=== PATIENT | female | born 1960 | race Caucasian/White ===

== ENCOUNTER 2024-02-12 08:38 | Outpatient (OUT) | payer MEDICARE, OTHER, SELFPAY ==
--- NOTE | 2024-02-12 08:53 | MM_ITS ---
Patient Name: ALEENA COLLINS MR#: [id number] : 1960 Exam Date: 02/12/2024 Ordering Doctor: DR Sim Silverio . RADIOLOGY REPORT PROCEDURE: MM TOMOSYNTHESIS SCREENING BI COMPARISON: MG MAMM SCREEN 3D PATSY CAD, 12/27/2020. MG MAMM SCREEN 3D PATSY CAD, 01/14/2023. INDICATIONS: Screening Calculator Name NCI Breast Cancer Risk Assessment Tool 5 Year Breast Cancer Risk 2.20% Lifetime Breast Cancer Risk 8.30% Personal Breast Cancer No Personal Ovarian Cancer No Treatments None Family Cancers Aunt-paternal with breast cancer at age ~40; Mother with melanoma cancer at age 60; Father with hodgkins cancer at age ~70. LOCATION: [facility] BREAST COMPOSITION: There are scattered areas of fibroglandular density. FINDINGS: DIAGNOSTIC CATEGORY 1--NEGATIVE. NO CHANGE FROM COMPARISON ASSESSMENT. Scattered benign-appearing calcifications are present. Scattered benign-appearing lymph nodes are present. RIGHT BREAST: No significant suspicious finding. Stable micro clip marker upper outer quadrant, mid breast LEFT BREAST: No significant suspicious finding. RECOMMENDATIONS: ROUTINE MAMMOGRAM AND CLINICAL EVALUATION IN 12 MONTHS. PLEASE NOTE: A NORMAL MAMMOGRAM DOES NOT EXCLUDE THE POSSIBILITY OF BREAST CANCER. A CLINICALLY SUSPICIOUS PALPABLE LUMP SHOULD BE BIOPSIED. Dictated by: Abdiaziz Collins MD on 02/12/2024 at 10:45 Approved by: Abdiaziz Collins MD on 02/12/2024 at 10:46
--- NOTE | 2024-02-12 08:54 | XR_ITS ---
[address] [address] Patient Name: ALEENA COLLINS MRN: [id number] date: 1960 Sex: F Assigned Patient Location: LAB Current Patient Location: Accession/Order Number: [id number] Exam Date: 02/12/2024 09:10 Report Date: 02/15/2024 07:31 At the request of: RAMÓN GREENE Procedure: XR DEXA axial skeleton EXAMINATION: XR DEXA axial skeleton, 02/12/2024 9:10 AM EDT HISTORY: Age Related Osteoporosis M81.0 COMPARISON: None. TECHNIQUE: Dual-energy X-ray absorptiometry (DEXA) bone density study performed for the axial skeleton. HISTORY: Age Related Osteoporosis M81.0 FINDINGS: Bone mineral density AP spine L1-L4 measures 1.062 g/sq cm. T score -1.0. WHO classification: Normal. Lowest bone mineral density left femoral neck measuring 0.718 g/sq cm. T score -2.3. WHO classification: Osteopenia XR/XR DEXA axial skeleton IMPRESSION: Osteopenia. Moderate fracture risk Pharmacologic treatment recommendations * No uniform recommendation applies to all patients. Management plans must be individualized. * Consider initiating pharmacologic treatment in postmenopausal women and men >= 50 years of age who have the following: Primary fracture prevention: * T-score <= - 2.5 at the femoral neck, total hip, lumbar spine, 33% radius (some uncertainty with existing data) by DXA. * Low bone mass (osteopenia: T-score between - 1.0 and - 2.5) at the femoral neck or total hip by DXA with a 10-year hip fracture risk >= 3% or a 10-year major osteoporosis-related fracture risk >= 20% (i.e., clinical vertebral, hip, forearm, or proximal humerus) based on the US-adapted FRAXregistered model. Secondary fracture prevention: * Fracture of the hip or vertebra regardless of BMD [4, 5]. * Fracture of proximal humerus, pelvis, or distal forearm in persons with low bone mass (osteopenia: T-score between - 1.0 and - 2.5). The decision to treat should be individualized in persons with a fracture of the proximal humerus, pelvis, or distal forearm who do not have osteopenia or low BMD [12, 13]. Maria Teresa MS, Arminda SL, Kenney KL, Cheyenne EM, Santosh KG, AJ, Sage ES. The clinician's guide to prevention and treatment of osteoporosis. Osteoporos Int. 2021;33(10):4087-2375. doi: 10.1007/q41111-065-19066-x. Epub 2021Dec 19. Erratum in: Osteoporos Int. 2021Mar 20;: PMID: 64252652; PMCID: [id number]. Electronically authenticated by: MARTHA GOETZ Date: 02/15/2024 07:31
[2024-02-12 08:58] LABS: Basophils Percent Auto 0.9 % (0.2-2.0); Eosinophils Absolute Auto 0.1 10^3/uL (0.0-0.7); Eosinophils Percent Auto 1.8 % (0.9-7.0); Hematocrit 43.8 % (36.0-48.0); Hemoglobin 14.4 g/dL (12.0-16.0); Immature Granulocytes Abs Auto 0.01 10^3/uL (0.00-0.03); Immature Granulocytes Pct Auto 0.2 % (0.0-0.5); Lymphocytes Absolute Auto 1.1 10^3/uL (1.2-3.8); Mean Corpuscular HGB Conc 32.9 g/dL (29.9-35.2); Mean Corpuscular Volume 94.2 fL (81.0-99.0); Mean Platelet Volume 9.9 fL (9.5-13.5); Monocytes Absolute Auto 0.4 10^3/uL (0.3-0.8); Monocytes Percent Auto 7.8 % (1.7-12.0); Neutrophils Absolute Auto 2.9 10^3/uL (1.4-6.5); Neutrophils Percent Auto 65.3 % (43.0-75.0); Platelet Count 221 10^3/uL (150-450); Red Blood Count 4.65 10^6/uL (4.20-5.40); Red Cell Distribution Width 13.2 % (11.0-15.0); White Blood Count 4.5 10^3/uL (4.0-11.0)
[2024-02-12 09:43] LABS: Estimated Average Glucose 117 mg/dL; Glycohemoglobin A1C 5.7 % (4.5-6.2)
[2024-02-12 10:39] LABS: Alanine Aminotransferase 22 U/L (14-59); Albumin Globulin Ratio 1.2; Albumin Level 3.9 g/dL (3.4-5.0); Alkaline Phosphatase 90 U/L (46-116); Anion Gap 9.1; Aspartate Amino Transferase 17 U/L (15-37); BUN Creatinine Ratio 26.7; Bilirubin Total 0.5 mg/dL (0.2-1.0); Calcium 9.3 mg/dL (8.5-10.1); Chloride 104 mmol/L (98-107); Chol HDL Ratio 2.2; Cholesterol 215 mg/dL (<=200); Estimated GFR (African America >60 (>=60); Estimated GFR (Non-African Ame >60 (>=60); Globulin 3.3 g/dL; Glucose 88 mg/dL (74-106); HDL Cholesterol 98 mg/dL (40-60); Potassium 4.1 mmol/L (3.5-5.1); Sodium 141 mmol/L (136-145); Thyroid Stimulating Hormone 2.313 uIU/mL (0.358-3.740); Total Protein 7.2 g/dL (6.4-8.2); Triglycerides 157 mg/dL (<=150); VLDL CHOLESTEROL 31.4 mg/dL
[2024-02-12 10:45] LABS: Free T4 0.96 ng/dL (0.76-1.46)
== END 2024-02-12 08:39 | disposition home or self-care (01) ==
LOC: LAB 08:38
PROVIDERS: PCP Family Medicine; Visit Provider Family Medicine
DX: R53.83 Other fatigue (principal); E78.00 Pure hypercholesterolemia, unspecified; R73.09 Other abnormal glucose; Z80.3 Family history of malignant neoplasm of breast; Z80.8 Family history of malignant neoplasm of other organs or systems; Z12.31 Encounter for screening mammogram for malignant neoplasm of breast; M85.80 Other specified disorders of bone density and structure, unspecified site; M81.0 Age-related osteoporosis without current pathological fracture
CPT/HCPCS: 36415; 77063; 77067; 77080; 80053; 80061; 83036; 84439; 84443; 85025

== ENCOUNTER 2025-04-18 08:32 | Outpatient (OUT) | payer MEDICARE, OTHER, SELFPAY ==
--- OUTSIDE RECORDS SUMMARY | 2024-02-16 05:25 | XMS_ITS ---
Author Organization [facility] in [place] Address [address] [place] [address] Care Team Providers Care Shot Man Name Role Phone Luigi Greene Primary Care Provider [phone] RAMÓN GREENE Unavailable [phone] REASON FOR VISIT Fosamax refused Encounters Encounter Location Date Provider [facility] [address] [place] [address] 02/16/2024 RAMÓN GREENE Plan Of Treatment No Information Progress Notes * Josseline COLLINS KDOB:1960 (63 yo F)Acc No.[id number]:02/16/2024 Patient: Bertha CLAUDIOJosseline :1960 A ge:63 Y S ex:Female Address:[address] [place], [address] * true * Date: Generated for Printi ng/Faxing/eTransmitting on: 0 04/18/2025 08:35 AM EDT
--- OUTSIDE RECORDS SUMMARY | 2024-11-10 07:52 | XMS_ITS ---
Author Organization The [facility] in [place] Address [address] [place] [address] Care Team Providers Care Decator Operator Name Role Phone Luigi Silverio Primary Care Provider [phone] REASON FOR VISIT Z-Pack Medications Medication SIG (Take, Route, Fr equency, Duration) Notes Start Date End Date Status Azithromycin 250 MG take 2 tablets on da y one Orally then one a day for the next 4 days for 5 days 11/10/2024 Active Encounters Encounter Location Date Provider Diagnosis [facility] [address] [place] [address] 11/10/2024 Luigi Silverio Plan Of Treatment Medication Medication Name Sig Start Date Stop Date Notes Azithromycin 250 MG take 2 tablets on da y one Orally then one a day for the next 4 days for 5 days 11/10/2024 Progress Notes * Josseline COLLINS KDOB:1960 (64 yo F)Acc No.[id number]:11/10/2024 Patient: Bertha Josseline CLAUDIO :1960 A ge:64 Y S ex:Female Address:[address] [place], [address] * Refills Start Azithromycin Tablet, 250 MG, Orally, 6 Each, take 2 tablets on day one, then one a day for the next 4 days, 5 days, Refills=0 * true * Date: Generated for Printi ng/Faxing/eTransmitting on: 0 04/18/2025 08:35 AM EDT
--- OUTSIDE RECORDS SUMMARY | 2025-04-18 08:35 | XMS_ITS | Patient Health Record ---
Author Organization [facility] in [place] Address [address] [place] [address] Care Team Providers Care Religious Education Teacher Name Role Phone Luigi Silverio Primary Care Provider [phone] Allergies Allergen (clinical drug ingredient) Drug/Non Drug Allergy documented on EMR Reaction Allergy Type Onset Date Status Substance with sulfonamide structure and antibacterial mechanism of action (substance) Sulfa Antibiotics hives Drug Allergy Active Reason For Referral No Information Medications Medication SIG (Take, Route, Frequency, Duration) Notes Start Date End Date Status Multi Vitamin - 1 tablet Orally Once a day Active Calcium 600 MG 1 tablet with meals Orally Twice a day 02/15/2024 Active Cholecalciferol 50 MCG (2000 UT) 1 capsule Orally Once a day 02/15/2024 Active Social History Tobacco Use: Social History Observation Description Date Details (start date - stop date) Never Smoker NA - NA Tobacco Use/Smoking Question Answer Notes Patient is a nonsmoker Alcohol Screen (Audit-C) Question Answer Notes Did you have a drink contain ing alcohol in the past year? Yes How often did you have 6 or more drinks on one occasion in the past year? Never (0 point) How many drinks did you have on a typical day when you were drinking in the past year? 1 or 2 drinks (0 point) How often did you have a dri nk containing alcohol in the past year? Weekly (3 points) Points 3 Interpretation Positive AUDIT-C (Standard) Question Answer Notes Did you have a drink contain ing alcohol in the past year? Yes How often did you have six o r more drinks on one occasion in the past year? Never (0 point) How many drinks did you have on a typical day when you were drinking in the past year? 1 or 2 drinks (0 point) How often did you have a dri nk containing alcohol in the past year? 2 to 4 times a month (2 points) Points 2 Interpretation Negative Problems Problem Type SNOMED Code ICD Code Onset Dates Problem Status W/U Status Risk Notes Problem 06420083 Age-related osteoporosis without current pathological fracture (M81.0) Active confirmed Problem Exposure to communicable disease (816464208) Contact with and (suspected) exposure to other viral communicable diseases (Z20.828) Active confirmed Problem Gastroesophageal reflux disease (606467752) GERD (gastroesophagea l reflux disease) (K21.9) Active confirmed Problem Osteopenia (055820054) Osteopenia (M85.80) Active confirmed Problem Lipoma (45697744) Lipoma (D17.9) Active confirm ed Problem Acute sinusitis (48164676) Acute sinusitis (J01.90) Active confirmed Problem Acute bronchitis (49229418) Acute bronchitis (J20.9) Active confirmed Problem Well adult (881529734) Well adult (Z00.00) Active confirmed Problem Paronychia of toe (962127477) Paronychia of toe (L03.039) Active confirmed Problem Candidiasis (05891939) Yeast infection (B37.9) Active confirmed Problem Routine gynecologic examination (499704075) Encounter for annual routine gynecological examination (Z01.419) Active confirmed Problem 06742729 Pure hypercholesterol emia, unspecified (E78.00) Active confirmed Vital Signs Blood pressure diastolic 80 mm Hg 04/03/2025 Height 55.5 in 04/03/2025 Blood pressure systolic 134 mm Hg 04/03/2025 Weight 138 lbs 04/03/2025 BMI 31.5 kg/m2 04/03/2025 Procedures Procedure Date Ordered Date Performed Result Body Sit e Cerumen Removal - performed 04/03/2025 N/A Encounters Encounter Location Date Provider Diagnosis [facility] [address] [place] [address] 04/03/2025 Luigi Silverio GERD (gastroesophage al reflux disease) K21.9 ; Osteopenia M85.80 and Bilateral impacted cerumen H61.23 [facility] [address] [place] [address] 11/10/2024 Luigi Silverio Assessments Encounter Date Diagnosis (ICD Code) Assessment Notes Treatment Notes Treatment Clinical Notes Section Notes 04/03/2025 GERD (gastroesophage al reflux disease) (ICD-10 - K21.9) 04/03/2025 Osteopenia (ICD-10 - M85.80) 04/03/2025 Bilateral impacted cerumen (ICD-10 - H61.23) Plan Of Treatment Pending Test Test Name Order Date HEMOGLOBIN A1C (GLYCO) 04/03/2025 IRON, TOTAL 04/03/2025 LIPID PANEL (CHOL/TRIG/HDL/LDL) 04/03/20 25 VITAMIN D, 25 LEVEL (TOTAL) 04/03/2025 Cerumen Removal - performed 04/03/2025 Cerumen Removal - performed 04/15/2023 CBC AUTO DIFF 12/31/2023 GLYCOHEMOGLOBIN A1C 12/31/2023 LIPID PROFILE 12/31/2023 PROF 14(COMP METB) 12/31/2023 THYROID PROFILE WITH TSH 12/31/2023 MG MAMM SCREEN 3D PATSY CAD 12/31/2023 XR DEXA BONE DENSITY 12/31/2023 THYROID PANEL (T4/TSH/FREE T3) 5 MM screening mammo BI 04/03/2025 CMP (COMP MET GIRARD) w/eGFR CKD-EPI 2024 CBC WITH DIFF 04/03/2025 Insurance Providers Payer Name Payer Address Payer Phone Subscriber Number Group Number Insured Name Patient Relationship to Insured Coverage Start Date Coverage End Date MEDICARE [place] [address] [place] [address] [id number] Josseline Gilbert Self - patient is the insured MMO MEDICARE SUPPLEMENT [address] [place] [address] [id number] Josseline Gilbert Self - patient is the insured Medical (General) History Medical History History ICD Code GERD (gastroesophageal reflux disease) K 21.9 Lipoma D17.9 Acute sinusitis J01.90 Contact with and (suspected) exposure to other viral communicable diseases Z20.828 Yeast infection B37.9 Encounter for annual routine gynecologic al examination Z01.419 Acute bronchitis J20.9 Paronychia of toe L03.039 Well adult Z00.00 Surgical History Surgery Date(Month/Year) Melanoma on face removed D & C x2
--- OUTSIDE RECORDS SUMMARY | 2025-04-18 08:35 | XMS_ITS | Clinical Summary ---
Author Organization [facility] Address [address] [place] [address] Care Team Providers Care International Bank Manager Name Role Phone Sim Silverio MD Primary Care Provider [phone] Allergies Active Allergy Reactions Criticality Noted Date Comments Sulfa Antibiotics Hives 03/11/2024 Medications calcium carbonate (Os-Carlitos) 1250 (500 Ca) MG tablet Take 1,250 mg by mouth Daily Active cholecalciferol (Vitamin D-3) 25 MCG (1000 UT) capsule Take 1,000 Units by mouth Daily Active Multiple Vitamin (multivitamin) tablet Take 1 tablet by mouth Daily Active Active Problems Problem Noted Date Diagnosed Date Age-related nuclear cataract of both eyes 2024 Early dry stage nonexudative age-related macular degeneration of both eyes 03/07/2025 Dry eyes 03/07/2025 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 e yes 03/07/2025 Encounters Date Type Department Care Team Description 03/07/2025 8:15 AM EDT Office Visit [facility] [address] [place] [id number] Jd Cardona, Age-related nuclear cataract of both eyes (Primary Dx); Early dry stage nonexudative age-related macular degeneration of both eyes; Dry eyes; 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 eyes, unspecified type 03/07/2025 Bamboo flowsheet [facility] [address] [place] [phone] Jd Cardona DO 03/07/2025 Travel 03/05/2025 Travel from Last 3 Months Family History Medical History Relation Name Comments Cancer Father Rachid Cancer Mother Katie Washburn Cancer Sister Carina Cataracts Sister Carina Relation Name Status Comments Father Rachid Mother Katie [place] Sister Carina Social History Tobacco Use Types Packs/Day Years Used Date Smoking Tobacco: Never Smokeless Tobacco: Never Tobacco Cessation:Counseling Given: Not Answered Alcohol Use Standard Drinks/Week Comments Yes 2 (1 standard drink = 0.6 oz pur e alcohol) Comments Unknown Sex and Gender Information Value Date Recorded Sex Assigned at Not on file Legal Sex Female 7:23 PM EDT Gender Identity Not on file Sexual Orientation Not on file Last Filed Vital Signs Vital Sign Reading Time Taken Comments Blood Pressure 132/79 03/11/2024 8:34 AM EDT Pulse 79 03/11/2024 8:34 AM EDT Temperature 36.8 C (98.2 F) 03/11/2024 8:34 AM EDT Respiratory Rate - - Oxygen Saturation - - Inhaled Oxygen Concentration - - Weight - - Height - - Body Mass Index - - Plan of Treatment Upcoming Encounters Date Type Department Care Team (Late st Contact Info) Description 03/13/2026 8:15 AM EDT Office Visit [facility] [address] [place] [address] Jd Cardona DO [address] [place] [address] Health Maintenance Due Date Last Done Comments CT Colonography 1960 Colonoscopy 1960 Colorectal Cancer Screening 1960 FIT-DNA 1960 FIT 1960 FOBT 1960 Sigmoidoscopy 1960 Mammogram 1998 Influenza Vaccine (#1) 2025 4, 04/24/2023, 05/19/2022, Additional history exists Pneumococcal Vaccine: 65+ Years Completed 4 Insurance MEDICARE [place] [place] Care Teams International Bank Manager Relationship Specialty Start Date End Date Sim Silverio MD [address] [place] [address] PCP - General 03/10/24
--- OUTSIDE RECORDS SUMMARY | 2025-04-18 08:35 | XMS_ITS | Encounter Summary ---
Author Organization [facility] Address [address] [place] [address] Care Team Providers Care Paper Bag Press Operator Name Role Phone Sim Silverio MD Primary Care Provider [phone] Encounter Details Date Type Department Care Team (Late st Contact Info) Description 03/16/2024 Abstract [facility] [place] [facility] [address] [place] [address] Matthew Hogue, DPGokul [address] [place] [address] Social History Tobacco Use Types Packs/Day Years Used Date Smoking Tobacco: Never Smokeless Tobacco: Never Alcohol Use Standard Drinks/Week Comments Yes 2 (1 standard drink = 0.6 oz pur e alcohol) Comments Unknown Sex and Gender Information Value Date Recorded Sex Assigned at Not on file Legal Sex Female 7:23 PM EDT Gender Identity Not on file Sexual Orientation Not on file documented as of this encounter Plan of Treatment Upcoming Encounters Date Type Department Care Team (Late st Contact Info) Description 03/13/2026 8:15 AM EDT Office Visit [facility] [address] [place] [phone] Jd Cardona, DO [address] [place] [address] documented as of this encounter Visit Diagnoses Not on filedocumented in this encounter Care Teams Paper Bag Press Operator Relationship Specialty Start Date End Date Sim Silverio MD [address] [place] [address] PCP - General 03/10/24 documented as of this encounter
--- OUTSIDE RECORDS SUMMARY | 2025-04-18 08:38 | XMS_ITS | CCD ---
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 Role Phone Bayron Beckett Unavailable DR RAMÓN NORRIS Primary Care Unavailable APRIL OCONNELL Attending Unavailable APRIL OCONNELL Consulting Unavailable APRIL OCONNELL Admitting Unavailable DR RAMÓN NORRIS Primary Care Unavailable APRIL OCONNELL Attending Unavailable APRIL OCONNELL Admitting Unavailable Ramón Greene MD Primary Care Provider [phone] Ramón Greene MD Primary Care Provider [phone] HAN KLEIN Attending Unavailable MATTHEW SANDOVAL Attending Unavailable MATTHEW SANDOVAL Attending Unavailable MATTHEW SANDOVAL Attending Unavailable MATTHEW SANDOVAL Attending Unavailable MATTHEW SANDOVAL Attending Unavailable Allergies Allergy Classification Reported Allergen(s) Allergy Type Date of Onset Reaction(s) Facility (2 sources) Sulfonamides (Antibiotic) Drug allergy (disorder) 3 [facility] Repository (11 sources) Sulfonamides (Antibiotic) Propensity to adverse reactions 4 Hives [facility] Medications Current Medications Medication Drug Class(es) Dates Sig (Normalized) Sig (Original) calcium carbonate 500 mg oral tablet (11 sources) take 1 tablet by mouth once daily calcium carbonate (Os-Carlitos) 1250 (500 Ca) MG tablet Take 1,250 mg by mouth Daily Active cholecalciferol 0.025 mg oral capsule (11 sources) Vitamin D take 1 capsule by mouth once daily cholecalciferol (Vitamin D-3) 25 MCG (1000 UT) capsule Take 1,000 Units by mouth Daily Active Multiple Vitamin (multivitamin) tablet (11 sources) take 1 tablet by mouth once daily Multiple Vitamin (multivitamin) tablet Take 1 tablet by mouth Daily Active Problems Active Problems Problem Classification Problem Date Documented Da te Episodic/Chronic Cataract (2 sources) Bilateral age-related nuclear cataracts; Translations: [Age-related nuclear cataract, bilateral] Onset: 03-07-2025 03-07-2025 Chronic Inflammation; infection of eye (except that caused by tuberculosis or sexually transmitteddisease) (2 sources) Blepharitis of upper and lower eyelids of bilateral eyes; Translations: [Unspecified blepharitis right eye, upper and lower eyelids] Onset: 03-07-2025 03-07-2025 Episodic Other connective tissue disease (6 sources) Pain of toe of right foot; Translations: [Pain in right toe(s)] 06-08-2024 Episodic Other eye disorders (2 sources) Dry eyes; Translations: [Dry eye syndrome of bilateral lacrimal glands] Onset: 03-07-2025 03-07-2025 Episodic Other liver diseases (1 source) Elevated liver enzymes level; Translations: [Elevated liver function tests] Episodic Other screening for suspected conditions (not mental disorders or infectious disease) (4 sources) Encounter for screening for malignant neoplasm of cervix; Translations: [ENC SCREENING MALIG NEOPLASM CERV] Onset: 01-01-2023 Episodic Retinal detachments; defects; vascular occlusion; and retinopathy (2 sources) Nonexudative age-related macular degeneration; Translations: [Nonexudative age-related macular degeneration, bilateral, early dry stage] Onset: 03-07-2025 03-07-2025 Chronic Superficial injury; contusion (2 sources) Contusion of left lesser toe(s) without damage to nail, initial encounter; Translations: [Contusion of toe] 06-08-2024 Episodic Viral infection (6 sources) Verruca vulgaris; Translations: [Viral wart, unspecified] 06-08-2024 Episodic Past or Other Problems Problem Classification Problem Date Documented Da te Episodic/Chronic Immunizations and screening for infectious disease (1 source) Encounter for screening for other viral diseases Onset: 11-29-2021 Resolved: 11-29-2021 Episodic Results Test Name Value Interpretation Reference Range Facility COVID Quick Testingon 2021 Result Negative [employer] Other CYTOLOGYon 05-20-2017 CYTOLOGY Specimen #: [id number] Physician: RAMÓN GREENE M.D.SPECIMEN SUBMITTEDA: CERVICAL, SCREENING, FLUID FI NAL DIAGNOSISA. CERVICAL, SCREENING, FLUIDSatisfactory for interpretation.Negative for intraepithelial lesion or malignancy.Atrophic specimen.Acute inflammation.This specimen has been analyzed by the ThinPrep Imaging System, Glider.io imaging and review system, which assists the laboratory inevaluating cells on ThinPrep Pap tests. Following automated imaging,selected townsend from every slide are reviewed by a food service counter clerk.CELIO Hernández (ASCP) (Electronic Signature) CL INICAL DATA Clinical History:ROUTINESTAINSA: CERVICAL, SCREENING, FLUID THIN PREP GYNJesteven Malhotra M.D., Laboratory DirectorPatient ID #: [id number] of Report: 05/22/2017Date of Procedure: 05/20/2017Date of Receipt: 05/21/2017Submitted by: RAMÓN GREENE M.D.Location: Diagnostic interpretation performed at [facility], [address] [place] [address].The Pap Smear is a screening test for cervical cancer. False negativeresults occur with all screening tests, emphasizing the need forrescreening at recommended intervals, and clinical correlation. Normal [facility] Comment on above: Performed By: #### C ####See report for performing lab information. Encounters Encounter Date Encounter Type Care Provider Facility Start: 03-07-2025 End: 03-07-2025 [employer] Initi[employer]o flowsheet Han Klein DO Work Phone: [facility] Start: 03-07-2025 End: 03-07-2025 [employer] GainSpanadam Klein DO Work Phone: [facility] Start: 03-07-2025 End: 03-07-2025 ambulatory HAN RODRIGUEZHERLINDA Not Available Start: 07-05-2024 End: 07-05-2024 Patient encounter procedure Matthew Sandoval DPM Work Phone: [facility] Comment on above: Verruca (Primary Dx) ; Pain in toe of right foot Start: 07-05-2024 End: 07-05-2024 ambulatory MATTHEW SANDOVAL Not Available Start: 07-05-2024 End: 07-05-2024 Bamboo flowsheet Matthew Sandoval DPM Work Phone: [facility] Start: 07-05-2024 End: 07-05-2024 Bamboo flowsheet Matthew Sandoval DPM Work Phone: [facility] Start: 06-08-2024 End: 06-08-2024 Patient encounter procedure Matthew Sandoval DPM Work Phone: [facility] Comment on above: Verruca (Primary Dx) ; Pain in toe of right foot; Hematoma of left fourth toe Start: 06-08-2024 End: 06-08-2024 ambulatory MATTHEW SANDOVAL Not Available Start: 06-08-2024 End: 06-08-2024 Bamboo flowsheet Matthew Sandoval DPM Work Phone: [facility] Start: 06-08-2024 End: 06-08-2024 Bamboo flowsheet Matthew Sandoval DPM Work Phone: [facility] Start: 05-09-2024 End: 05-09-2024 Patient encounter procedure Matthew Sandoval DPM Work Phone: [facility] Comment on above: Verruca (Primary Dx) ; Pain in toe of right foot Start: 05-09-2024 End: 05-09-2024 ambulatory MATTHEW SANDOVAL Not Available Start: 05-09-2024 End: 05-09-2024 Bamboo flowsheet Matthew Sandoval DPM Work Phone: [facility] Start: 05-09-2024 End: 05-09-2024 Bamboo flowsheet Matthew Abiola Sandoval DPM Work Phone: [facility] Start: 03-29-2024 End: 03-29-2024 ambulatory MATTHEW SANDOVAL Not Available Start: 03-11-2024 End: 03-14-2024 ambulatory MATTHEW SANDOVAL Not Available Start: 01-14-[address] RAMÓN GREENE . Facili ty:[facility] Start: 01-01-2023 End: 01-01-[address] RAMÓN GREENE . Facility: Start: 11-29-2021 End: 11-29-2021 ambulatory Bayron Beckett Other [employer] Other Start: 11-29-2021 Office outpatient vi sit 5 minutes Bayron Beckett [facility] [address] Procedures Date Procedure Procedure Detail Performing Clinician Start: 03-07-2025 End: 03-07-2025 Ophth medical xm&eval compre new pt 1/> vst Age-related nuclear cataract of both eyes Han Klein DO Work Phone: Comment on above: Age-related nuclear cataract of both eyes (Primary Dx); Early dry stage nonexudative age-related macular degeneration of both eyes; Dry eyes; 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 eyes, unspecified type Plan of Treatment Date Care Activity Detail Author Start: 04-24-2025 Influenza vaccination Influenza Vacc ine (#1) [facility] Start: 03-07-2025 End: 03-07-2025 Patient encounter procedure 03/07/2025 8:15 AM EDT Office Visit [facility] [address] [place] [address] Han Klein DO [address] [place] [address] Arrived [facility] Comment on above: Arrived Start: 07-05-2024 End: 07-05-2024 Patient encounter procedure 07/05/2024 4:00 PM EST Office Visit [facility] [address] [place] [id number] Matthew Sandoval, DPM [address] [place] [address] [facility] Start: 06-08-2024 End: 06-08-2024 Patient encounter procedure [facility] Comment on above: Arrived Start: 05-09-2024 End: 05-09-2024 Patient encounter procedure 05/09/2024 4:15 PM EDT Office Visit [facility] [address] [place] [address] Matthew Sandoval, DPM [address] [place] [address] Arrived [facility] Comment on above: Arrived Start: 04-24-2024 Influenza vaccination Influenza Vacc ine (#1) [facility] Start: 2023 Pneumococcal Vaccine : 65+ Years (1 of 1 - PCV) Pneumococcal Vaccine: 65+ Years (1 of 1 - PCV) [facility] Start: 1998 Screening for malign ant neoplasm of breast Mammogram [facility] Start: 1988 Screening for malign ant neoplasm of cervix [facility] Start: 1979 Screening for malign ant neoplasm of cervix Pap Smear [facility] Start: 1960 Screening for malign ant neoplasm of colon [facility] Immunizations Immunization Date Immunization Notes Care Provider Fa cility 05-10-2024 influenza virus vacc ine, unspecified formulation Matthew Sandoval DPGokul Work Phone: [facility] 04-24-2023 influenza virus vacc ine, unspecified formulation Matthew Sandoval DPM Work Phone: [facility] Payers Date Payer Category Payer Medicare [id number] 2023 Medicare [id number] 2023 Private Health Insurance [employer] [id number] 2023 Unknown [employer] [id number] 2023-Present [address] [place] [address] [id number] 2023 Unknown [id number] 1958 Unknown [id number] 1958 Unknown [id number] 593 1958 Unknown [id number] 1259 1958 Unknown [id number] 1259 1958 Unknown [id number] 1259 1958 Unknown [id number] 1259 1958 Unknown [id number] 1259 1958 Unknown [id number] 1259 [facility] [id number] Unknown [id number] Social History Date Type Detail Facility Start: 05-09-2024 End: 03-07-2025 Sex Assigned At [facility] [employer] Other Start: 03-11-2024 Tobacco smoking stat [facility] Never smoked tobacco [facility] Start: 03-11-2024 Tobacco use and exposure Smokeless tobacco non-user [facility] Start: 05-09-2024 End: 03-07-2025 Alcoholic beverage intake Current drinker of alcohol (finding) [facility] Start: 05-09-2024 End: 03-07-2025 Alcoholic beverage intake [facility] Start: 1960 Sex assigned at Not on file [facility] History of Present illness Narrative 03-07-2025 Han Klein DO - 03/07/2025 8:15 AM EDT Note Date & Type Note Facility 03-07-2025 History of Presen t illness Narrative Images from the original note were not included. Assessment/Plan Diagnoses and all orders for this visit: Age-related nuclear cataract of both eyes - Cataract, OU: Observe for now without intervention. The patient was advised to contact us if any change or worsening of vision Early dry stage nonexudative age-related macular degeneration of both eyes - ARMD OU, dry. Importance of smoking cessation, blood pressure control, and healthy diet were emphasized. Patient was advised to consider ultraviolet-B blocking sunglasses. In accordance with the AREDS study, appropriate antioxidant and mineral supplements were prescribed. Patient was instructed to self monitor their monocular vision (reading/Amsler Grid) at least weekly. Patient should immediately report any new onset of decreased vision or metamorphopsia. Dry eyes - Dry Eyes OU -- Environmental changes to minimize dryness and exposure and the use of artificial tears were recommended. 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 eyes, unspecified type - Blepharitis, posterior type OU - The patient exhibits inspissated meibomian glands. Warm compresses, lid massage and lid scrubs were recommended. documented in this encounter [facility] History of Present illness Narrative 07-05-2024 Matthew Culver KIMBERLY Sandoval - 07/05/2024 4:00 PM EST Note Date & Type Note Facility 07-05-2024 History of Presen t illness Narrative Reason for Visit: Established Patient: Recheck RT lateral fourth toe painful wart Second Complaint: FOWELR #4 HPI Established patient presents for recheck of painful verruca to the RT lateral fourth toe. Patient has no new lesions. Patient states is starting to have some pain. Patient states better than it was. Patient was informed me that she will be leaving to go to [facility] soon and will return in October. We had informed her at past visits about a stock holder in that location approximately 2 hours away who would offer Fowler microwave therapy for patient. The patient was advised at last visit and today to contact that office to schedule if she should keep her Fowler treatments 1 month apart. No guarantees were given nor implied that after today's treatment for verruca would resolve. Overall she is seeing improvement no new verruca are noted per patient's statement. Second Complaint: FOWLER treatment #4. Review of Systems General: Chills denies. Fatigue denies. Fever denies. Night sweats denies. Endocrine: Diabetes denies. Hyperpigmentation denies. Weakness denies. Cardiovascular: Chest pain denies. Shortness of breath denies. Gastrointestinal: Constipation denies. Diarrhea denies. Nausea denies. Vomiting denies. Hematology: Anemia denies. Bleeding problems denies. Easy bruising denies. Musculoskeletal: Bone/joint symptoms denies. Leg cramps denies. Peripheral Vascular: Edema denies. Raynaud's denies. Rest pain denies. Varicose veins denies. Skin: Nail changes denies. Rash denies. Skin lesion(s) denies. Ulceration admits. Neurologic: Dizziness denies. Gait abnormality denies. Headache denies. Tingling/Numbness denies. Examination General Examination: GENERAL EXAMINATION: awake, aware of surroundings, in no acute distress. Vascular: DORSALIS PEDIS PULSE: palpable bilateral. POSTERIOR TIBIAL PULSE: palpable bilateral. TEMPERATURE GRADIENT: warm to cool. EDEMA: none CAPILLARY FILLING TIME(sec): less than 2 seconds bilateral. Ankle / Foot: MUSCLE STRENGTH: 5/5 to the major muscle groups. Neurologic: NEUROLOGIC: normal. Dermatologic: SKIN FINDINGS: texture, turgor and hair growth normal. HYPERKERATOSIS: Pre-ulcerative callus right lateral 4th toe appears to be more of a true callus than verruca though recent biopsy per dermatology revealed verruca. NAIL PATHOLOGY: Intact toenails to 1-5 bilaterally. VERRUCA: Recent Right lateral 4th toe biopsy per dermatology revealed verruca. Once again this verruca lesion looks more like a true interdigital callus clinically. Very minimal discomfort and no sign of open wound or infection. Petechiae are not noted. Orthopedic: JOINT RANGE OF MOTION: normal. DEFORMITIES: Right 4th toe somewhat larger around the proximal phalanx head and PIPJ/ proximal interphalangeal joint laterally. ORTHOPEDIC: right 4th toe somewhat larger around the proximal phalanx head and PIPJ/ proximal interphalangeal joint laterally. SHOE GEAR EVALUATION: athletic shoes bilateral foot. Imaging: Foot X-Ray: 03-11-2024: Right foot x-rays, weightbearing AP/MO/LAT views, obtained today shows: No unusual signs of pathology to special attention to the right 4th toe area where there is enlargement noted proximal aspect underlying soft tissue pathology must be documented for MRI as radiographs show no sign of fracture, dislocation, periosteal reaction, calcific soft tissue mass, infection tumor, stress fracture, arthritis or infection. 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 Right toe pain -Right lateral 4th toe -chronic Plan 1. Patient presents today for follow up examination due to verruca plantaris lateral right 4th toe. Patient has reduced pain and no new verruca is noted. Patient was advised once again about treatment options. She will be leaving to visit [facility] for a few months in June through early spring. She does have a phone number and address of a stock holder at [facility] therapy and patient was advised to contact to schedule as soon as possible so she can keep on her monthly basis for treatments, if still necessary. 2. I did evaluate patient's lateral right 4th toe. There is no open wound no sign of infection please note. I advised patient I would strongly recommend proceeding with the treatment this time as we need to try to keep treatments on a monthly basis if we are going to resolve this verruca. Patient agreed. 3. Patient wishes to proceed with FOWLER Microwave Therapy treatment #4 today. Patient is aware this is not a covered service through patient's insurance and patient will be financially responsible. The appropriate paperwork and ABN form was signed. 3. Please see scanned report for details of patient's FOWLER Microwave Therapy treatment #4, which was performed today. 4. Patient advised not to walk barefoot and inspect feet daily for any signs of new verruca. 5. Patient was advised that no treatment is necessary between now and next month's office visit. 6. Reappoint in one month for FOWLER Microwave Therapy treatment #5. 7. Please note patient will be heading to [facility] soon and will reappoint in the spring of November 10, 2024. She was advised to contact me if she so wishes me to fax notes to the stock holder in [place] for treatments beginning in 1 month. documented in this encounter [facility] History of Present illness Narrative 06-08-2024 Matthew Sandoval DPM - 06/08/2024 4:00 PM EDT Note Date & Type Note Facility 06-08-2024 History of Presen t illness Narrative Reason for Visit: Established Patient: Recheck RT lateral fourth toe painful wart Second Complaint: FOWLER #3 HPI Established patient presents for recheck of painful verruca to the RT lateral fourth toe. Patient getting some swelling and a blood blister on the wart and having a burning feeling, putting neosporin on it couple times a day. Patient states the first May it started getting a blood blister and hurts after her second treatment. Second Complaint: FOWLER treatment #3. Review of Systems General: Chills denies. Fatigue denies. Fever denies. Night sweats denies. Endocrine: Diabetes denies. Hyperpigmentation denies. Weakness denies. Cardiovascular: Chest pain denies. Shortness of breath denies. Gastrointestinal: Constipation denies. Diarrhea denies. Nausea denies. Vomiting denies. Hematology: Anemia denies. Bleeding problems denies. Easy bruising denies. Musculoskeletal: Bone/joint symptoms denies. Leg cramps denies. Peripheral Vascular: Edema denies. Raynaud's denies. Rest pain denies. Varicose veins denies. Skin: Nail changes denies. Rash denies. Skin lesion(s) denies. Ulceration admits. Neurologic: Dizziness denies. Gait abnormality denies. Headache denies. Tingling/Numbness denies. Examination General Examination: GENERAL EXAMINATION: awake, aware of surroundings, in no acute distress. Vascular: DORSALIS PEDIS PULSE: palpable bilateral. POSTERIOR TIBIAL PULSE: palpable bilateral. TEMPERATURE GRADIENT: warm to cool. EDEMA: none CAPILLARY FILLING TIME(sec): less than 2 seconds bilateral. Ankle / Foot: MUSCLE STRENGTH: 5/5 to the major muscle groups. Neurologic: NEUROLOGIC: normal. Dermatologic: SKIN FINDINGS: texture, turgor and hair growth normal. HYPERKERATOSIS: Pre-ulcerative callus right lateral 4th toe appears to be more of a true callus than verruca though biopsy per dermatology revealed verruca. NAIL PATHOLOGY: Intact toenails to 1-5 bilaterally. VERRUCA: Right lateral 4th toe biopsy per dermatology revealed verruca. Once again this verruca lesion looks more like a true interdigital callus clinically, However today shows dry hematoma more superiorly with thickened type callus tissue. Very minimal discomfort and no sign of open wound or infection. Petechiae are not noted. Orthopedic: JOINT RANGE OF MOTION: normal. DEFORMITIES: Right 4th toe somewhat larger around the proximal phalanx head and PIPJ/ proximal interphalangeal joint laterally. ORTHOPEDIC: right 4th toe somewhat larger around the proximal phalanx head and PIPJ/ proximal interphalangeal joint laterally. SHOE GEAR EVALUATION: athletic shoes bilateral foot. Imaging: Foot X-Ray: 03-11-2024: Right foot x-rays, weightbearing AP/MO/LAT views, obtained today shows: No unusual signs of pathology to special attention to the right 4th toe area where there is enlargement noted proximal aspect underlying soft tissue pathology must be documented for MRI as radiographs show no sign of fracture, dislocation, periosteal reaction, calcific soft tissue mass, infection tumor, stress fracture, arthritis or infection. 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 Right toe pain -Right lateral 4th toe -chronic 3. Hematoma lateral right 4th toe -resolving /dry /clinically noninfected Plan 1. Patient presents today for follow up examination due to verruca plantaris lateral right 4th toe. Patient has reduced pain and no new verruca is noted. hematoma developed multiple days after her last treatment which is very unusual and patient was advised of such. I am not sure I can correlate the 2 together at this time. Either way, patient was advised once again about treatment options. She will be leaving to visit [facility] for a few months in June through early spring. She does have a phone number and address of a stock holder at offers FOWLER microwave therapy and patient was advised to contact to schedule as soon as possible so she can keep on her monthly basis for treatments, if still necessary in 2 months. Patient will be able to follow up with us July 06 for 1 month follow up from today's visit. 2. I did evaluate patient's lateral right 4th toe hematoma was dry and absorb however it is very thick hard callus type tissue around the periphery of the wart. Petechiae are not noted. I did use manual and mechanical debridement of the thickened callus type tissue. I was very careful to not over debride the thickened callus to cause friction, blister, pain or opening. There is no open wound no sign of infection please note. I advised patient I would strongly recommend proceeding with the treatment this time as we need to try to keep treatments on a monthly basis if we are going to resolve this verruca. Patient agreed. 3. Patient wishes to proceed with FOWLER Microwave Therapy treatment #3 today. Patient is aware this is not a covered service through patient's insurance and patient will be financially responsible. The appropriate paperwork and ABN form was signed. 3. Please see scanned report for details of patient's FOWLER Microwave Therapy treatment #3, which was performed today. 4. Patient advised not to walk barefoot and inspect feet daily for any signs of new verruca. 5. Patient was advised that no treatment is necessary between now and next month's office visit. 6. Reappoint in one month for FOWLER Microwave Therapy treatment #4. documented in this encounter [facility] History of Present illness Narrative 05-09-2024 Matthew Sandoval, DPM - 05/09/2024 4:15 PM EDT Note Date & Type Note Facility 05-09-2024 History of Presen t illness Narrative Reason for Visit: Established Patient: Recheck RT lateral fourth toe painful wart Second Complaint: FOWLER #2 HPI Established patient presents for recheck of painful verruca to the RT lateral fourth toe. Patient getting some swelling on the fourth toe, achy pain. No new lesions are present. Patient states the first FOWLER microwave therapy treatment helped. Second Complaint: FOWLER treatment #2. Review of Systems General: Chills denies. Fatigue denies. Fever denies. Night sweats denies. Endocrine: Diabetes denies. Hyperpigmentation denies. Weakness denies. Cardiovascular: Chest pain denies. Shortness of breath denies. Gastrointestinal: Constipation denies. Diarrhea denies. Nausea denies. Vomiting denies. Hematology: Anemia denies. Bleeding problems denies. Easy bruising denies. Musculoskeletal: Bone/joint symptoms denies. Leg cramps denies. Peripheral Vascular: Edema denies. Raynaud's denies. Rest pain denies. Varicose veins denies. Skin: Nail changes denies. Rash denies. Skin lesion(s) denies. Ulceration admits. Neurologic: Dizziness denies. Gait abnormality denies. Headache denies. Tingling/Numbness denies. Examination General Examination: GENERAL EXAMINATION: awake, aware of surroundings, in no acute distress. Vascular: DORSALIS PEDIS PULSE: palpable bilateral. POSTERIOR TIBIAL PULSE: palpable bilateral. TEMPERATURE GRADIENT: warm to cool. EDEMA: none CAPILLARY FILLING TIME(sec): less than 2 seconds bilateral. Ankle / Foot: MUSCLE STRENGTH: 5/5 to the major muscle groups. Neurologic: NEUROLOGIC: normal. Dermatologic: SKIN FINDINGS: texture, turgor and hair growth normal. HYPERKERATOSIS: Pre-ulcerative callus right lateral 4th toe appears to be more of a true callus than verruca though biopsy per dermatology revealed verruca. NAIL PATHOLOGY: Intact toenails to 1-5 bilaterally. VERRUCA: Right lateral 4th toe biopsy per dermatology revealed verruca. Once again this verruca lesion looks more like a true interdigital callus clinically, minimal petechiae noted of a dark burgundy black color within the centralized lesion. No new verruca noted. Orthopedic: JOINT RANGE OF MOTION: normal. DEFORMITIES: Right 4th toe somewhat larger around the proximal phalanx head and PIPJ/ proximal interphalangeal joint laterally. ORTHOPEDIC: right 4th toe somewhat larger around the proximal phalanx head and PIPJ/ proximal interphalangeal joint laterally. SHOE GEAR EVALUATION: athletic shoes bilateral foot. Imaging: Foot X-Ray: 03-11-2024: Right foot x-rays, weightbearing AP/MO/LAT views, obtained today shows: No unusual signs of pathology to special attention to the right 4th toe area where there is enlargement noted proximal aspect underlying soft tissue pathology must be documented for MRI as radiographs show no sign of fracture, dislocation, periosteal reaction, calcific soft tissue mass, infection tumor, stress fracture, arthritis or infection. 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 Right toe pain -Right lateral 4th toe -chronic Plan 1. Patient presents today for follow up examination due to verruca plantaris lateral right 4th toe. Patient has reduced pain and no new verruca is noted. 2. Patient wishes to proceed with FOWLER Microwave Therapy treatment #2 today. Patient is aware this is not a covered service through patient's insurance and patient will be financially responsible. The appropriate paperwork and ABN form was signed. 3. Please see scanned report for details of patient's FOWLER Microwave Therapy treatment #2, which was performed today. 4. Patient advised not to walk barefoot and inspect feet daily for any signs of new verruca. 5. Patient was advised that no treatment is necessary between now and next month's office visit. 6. Reappoint in one month for FOWLER Microwave Therapy treatment # 3. documented in this encounter [facility] Evaluation note 11-29-2021 Note Date & Type Note Facility 11-29-2021 Evaluation note Encounter Date Diagnosis Assessment Notes Nov, Encounter for screening for other viral diseases (ICD-10 - Z11.59) Please do not charge the patient for the visit. Nov, Other Additional time spent conducting pre-visit phone call, screening for symptoms, instructions on social distancing, application and removal of PPE, and cleaning of examination room, equipment and supplies was preformed. Patient education given for testing methodology and results. Patient care instructions given in writting by [facility] document. [employer] Other Evaluation note Note Date & Type Note Facility Evaluation note Diagnosis Verruca- Primary Viral warts, unspecified Pain in toe of right foot Pain in soft tissues of limb Hematoma of left fourth toe documented in this encounter [facility] Evaluation note Note Date & Type Note Facility Evaluation note Diagnosis Verruca- Primary Viral warts, unspecified Pain in toe of right foot Pain in soft tissues of limb documented in this encounter [facility] Evaluation note Note Date & Type Note Facility Evaluation note Diagnosis Verruca- Primary Viral warts, unspecified Pain in toe of right foot Pain in soft tissues of limb documented in this encounter [facility] Evaluation note Note Date & Type Note Facility Evaluation note Diagnosis Age-related nuclear cataract of both eyes- Primary Early dry stage nonexudative age-related macular degeneration of both eyes Dry eyes Unspecified tear film insufficiency 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 eyes, unspecified type documented in this encounter [facility] Summary Purpose Family History No Family History Records FoundNo Family History Records FoundNo Family History Records Found Advance Directives No Advanced Directives Records FoundNo Advanced Directives Records FoundNo Advanced Directives Records Found Additional Source Comments INFORMATION SOURCE (unrecogn ized section and content) DATE CREATED AUTHOR 02/17/2018 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 Relationship Specialty Start Date End Date Ramón Greene MD [address] [place] [address] PCP - General 03/10/24 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 Relationship Specialty Start Date End Date Ramón Greene MD [address] [place] [id number] [phone] PCP - General 03/10/24 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 Relationship Specialty Start Date End Date Ramón Greene MD [address] [facility] [place] [address] PCP - General 03/10/24 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 Relationship Specialty Start Date End Date Ramón Greene MD [address] [facility] [place] [phone] PCP - General 03/10/24 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 Relationship Specialty Start Date End Date Ramón Greene MD [address] [facility] [place] [address] PCP - General 03/10/24 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 This clinical summary was aggregated from multiple sources. Caution should be exercised in using it in the provision of clinical care. This summary normalizes information from multiple sources, and as a consequence, information in this document may materially change the coding, format and clinical context of patient data. In addition, data may be omitted in some cases. CLINICAL DECISIONS SHOULD BE BASED ON THE PRIMARY CLINICAL RECORDS. [facility] [employer] [facility]. provides no warranty or guarantee of the accuracy or completeness of information in this document.
--- NOTE | 2025-04-18 08:51 | MM_ITS ---
Patient Name: ALEENA COLLINS MR#: [id number] : 1960 Exam Date: 04/18/2025 Ordering Doctor: DR RAMÓN GREENE . RADIOLOGY REPORT PROCEDURE: MM TOMOSYNTHESIS SCREENING BI COMPARISON: MM TOMOSYNTHESIS SCREENING BI, 02/12/2024. MG MAMM SCREEN 3D PATSY CAD, 01/14/2023. MG MAMM SCREEN 3D PATSY CAD, 12/27/2020. MAMMO POST BIOPSY RIGHT, 05/25/2013. INDICATIONS: Screening Calculator Name NCI Breast Cancer Risk Assessment Tool 5 Year Breast Cancer Risk 2.30% Lifetime Breast Cancer Risk 8.00% Personal Breast Cancer No Personal Ovarian Cancer No Treatments None Family Cancers Aunt-paternal with breast cancer at age ~40; Mother with melanoma cancer at age 60; Father with hodgkins cancer at age ~70. LOCATION: [facility] BREAST COMPOSITION: There are scattered areas of fibroglandular density. FINDINGS: RIGHT BREAST: No significant suspicious finding. LEFT BREAST: No significant suspicious finding. DIAGNOSTIC CATEGORY 1--NEGATIVE. RECOMMENDATIONS: ROUTINE MAMMOGRAM AND CLINICAL EVALUATION IN 12 MONTHS. Dictated by: Morgan Estrada DO on 04/18/2025 at 13:55 Approved by: Morgan Estrada DO on 04/18/2025 at 13:56
[2025-04-18 09:26] LABS: Alanine Aminotransferase 24 U/L (14-59); Albumin Globulin Ratio 1.3; Albumin Level 4.1 g/dL (3.4-5.0); Alkaline Phosphatase 76 U/L (46-116); Anion Gap 8.4; Aspartate Amino Transferase 20 U/L (15-37); Blood Urea Nitrogen 15.0 mg/dL (7.0-18.0); Calcium 9.1 mg/dL (8.5-10.1); Carbon Dioxide 34.2 mmol/L (21.0-32.0); Chloride 105 mmol/L (98-107); Cholesterol 218 mg/dL (<=200); Estimated GFR (African America >60 (>=60 mL/min/1.73m^2); Estimated GFR (Non-African Ame >60 (>=60 mL/min/1.73m^2); Free T3 2.67 pg/mL (2.18-3.98); Globulin 3.1 g/dL; Glucose 84 mg/dL (74-106); HDL Cholesterol 91 mg/dL (40-60); Potassium 4.6 mmol/L (3.5-5.1); Sodium 143 mmol/L (136-145); Thyroid Stimulating Hormone 3.074 uIU/mL (0.358-3.740); Total Protein 7.2 g/dL (6.4-8.2); Triglycerides 121 mg/dL (<=150); VLDL CHOLESTEROL 24.2 mg/dL
[2025-04-18 09:55] LABS: Iron 93.0 ug/dL (50.0-170.0)
[2025-04-18 09:59] LABS: Hematocrit 43.5 % (36.0-48.0); Hemoglobin 14.4 g/dL (12.0-16.0); Immature Granulocytes Abs Auto 0.01 10^3/uL (0.00-0.03); Immature Granulocytes Pct Auto 0.3 % (0.0-0.5); Lymphocytes Absolute Auto 1.1 10^3/uL (1.2-3.8); Mean Corpuscular HGB Conc 33.1 g/dL (29.9-35.2); Mean Corpuscular Hemoglobin 31.6 pg (26.7-34.0); Mean Corpuscular Volume 95.4 fL (81.0-99.0); Platelet Count 185 10^3/uL (150-450); Red Blood Count 4.56 10^6/uL (4.20-5.40); White Blood Count 3.9 10^3/uL (4.0-11.0)
== END 2025-04-18 08:33 | disposition home or self-care (01) ==
LOC: MAMMO 08:32
PROVIDERS: PCP Family Medicine
DX: Z12.31 Encounter for screening mammogram for malignant neoplasm of breast (principal); K21.9 Gastro-esophageal reflux disease without esophagitis; M85.80 Other specified disorders of bone density and structure, unspecified site; E78.5 Hyperlipidemia, unspecified; R73.09 Other abnormal glucose; D64.9 Anemia, unspecified; R53.83 Other fatigue; E55.9 Vitamin D deficiency, unspecified; Z80.51 Family history of malignant neoplasm of kidney; Z80.3 Family history of malignant neoplasm of breast; Z80.8 Family history of malignant neoplasm of other organs or systems
CPT/HCPCS: 36415; 77063; 77067; 80053; 80061; 82306; 83036; 83540; 84436; 84443; 84481; 85025